=== PATIENT | male | born 1985 | race Caucasian/White ===

== ENCOUNTER 2023-07-28 07:26 | Emergency (ER) | payer OTHER, SELFPAY ==
[2023-07-28 07:31] VITALS: BP 130/105
[2023-07-28 08:09] LABS: % Basophils 0.1 % (0-2); % Eosinophils 0.1 % (0-6); % Immature Granulocytes 0.5 % (0-0.5); % Lymphocytes 6.9 % (20.5-51.1); % Neutrophils 82.4 % (42.2-75.2); Absolute Immature Granulocytes 0.1 10^3/uL (0-0.05); Absolute Monocytes 1.4 10^3/uL (0.1-0.6); Absolute Neutrophils 11.5 10^3/uL (1.4-6.5); Hematocrit 43.6 % (39.0-52.0); Hemoglobin 15.5 g/dL (13.0-18.0); Mean Corp Hgb Conc. 35.6 g/dL (33.0-37.0); Mean Corpuscular Hgb 30.1 pg (27.0-31.0); Mean Corpuscular Volume 84.7 fL (80.0-94.0); Mean Platelet Volume 10.8 fL (7.4-10.4); Nucleated Red Blood Cells % 0 % (-); Platelet Count 179 10^3/uL (130-400); Red Blood Cell Count 5.15 10^6/uL (4.70-6.10); Red Cell Dist. Width 12.2 % (11.5-14.5)
--- NOTE | 2023-07-28 08:21 | ED.GENMED ---
History of Present Illness
General
Chief Complaint: Cold/Flu/URI Symptoms
Source: patient
Exam Limitations: none
Time Seen by Provider: 07/28/23 08:11
Nursing documentation reviewed up to this point in time: agreed with
Travel History
Have you had any contact with someone who has COVID-19?: No
Do you have any symptoms of coronavirus? Fever > 100 degrees, chills, cough, shortness of breath, sore throat, loss of taste or smell, muscle aches, or headache?: No
History of Present Illness
History of Present Illness:
Patient is a 37-year-old male who presents to the ER for evaluation. Patient reports on Friday 2 days ago he started feel very lethargic. Yesterday send he had bodyaches and chills and headache with a fever of 102.7. He does complain of a sore
throat. Take Motrin this morning. He came to the ER today because he complains of a lot of back pain and was concerned about his kidneys. He denies any neck pain blurry vision. Denies any abdominal pain diarrhea constipation. He denies any
urinary frequency urgency or dysuria. Family has cold symptoms.
He is drinking fluids. He did take Motrin around 7 AM this morning and is starting to feel little better.
Past History
Past History
ED Past Medical History: None
ED Past Surgical History: None
Social History
Tobacco: Non-smoker
Alcohol: None
Drug: None
Living: with family
Family History
Family History: Negative Diabetes, Hypertension or CAD
Review of Systems
Review of Systems
Allergies reviewed?: Yes
All Other Systems: ROS reviewed and negative except as documented in HPI and ROS
Constitutional: Reports fever, fatigue and chills
EENT: Reports sore throat
Respiratory: Reports no symptoms; Denies cough
Cardiac: Reports no symptoms
ABD/GI: Reports no symptoms
Musculoskeletal: Reports no symptoms
Skin: Reports no symptoms
Neurological: Reports no symptoms
Psychiatric: Reports no symptoms
Phy Exam
General Physical Exam
General Presentation: no apparent distress
General age: appears stated age
General Skin: warm and dry
General Habitus: normal
General Mental: alert
General Hydration: appears well hydrated
ENT Exam
ENT Exam: EOMI, neck supple, pharyngeal erythema and other (No exudate, uvula midline tolerating secretions well)
Eye Exam
Eye Exam: PERRL and EOMI
Eye Exam General: PERRL: bilateral and EOM intact: bilateral
Pupil Exam: Bilateral: round and reactive
Neurological Exam
Neurological Exam: alert and oriented x3
Musculoskeletal Exam
Musculoskeletal Exam: full ROM
Skin Exam
Skin Exam: normal color and warm/dry
Psychiatric Exam
Psychiatric Exam: normal mood/affect
Course
Orders/Labs/Results
Orders:
Orders
07/28/23 07:43
Complete Blood Count/With Diff Urgent
Comprehensive Metabolic Panel Urgent
07/28/23 07:44
COVID-19 Antigen Urgent
Source: Nasal Swab
Influenza A+B Rapid Molecular Urgent
BARBARA Source: Nasal Swab
Specimen Description:
Date Specimen was Collected: 07/28/23
Time Specimen was Collected: 07:36
Rapid Strep Group A Urgent
BARBARA Source: Throat/Pharynx
Specimen Description:
Date Specimen was Collected: 07/28/23
Time Specimen was Collected: 07:36
Throat Culture, Comprehensive Urgent
BARBARA Source: Throat/Pharynx
Specimen Description:
Date Specimen was Collected: 07/28/23
Time Specimen was Collected: 07:36
07/28/23 08:36
0.9% Sodium Chloride 1000 ml [Nss] 1,000 ml IV BOLUS
07/28/23 08:37
Acetaminophen [Tylenol] 1,000 mg PO NOW STA
Diphenhydramine [Benadryl] 25 mg IV NOW STA
Metoclopramide [Reglan] 10 mg IV NOW STA
07/28/23 08:57
UA Reflex to Culture [Urinalysis Reflex To Culture] Urgent
Date Specimen was Collected: 07/28/23
Time Specimen was Collected: 08:43
Urine Microscopic Reflex Cult Urgent
Abnormal Lab Results
07/28/23 07/28/23
07:43 08:57
WBC 14.0 H 10^3/uL
(4.8-10.8)
MPV 10.8 H fL
(7.4-10.4)
Abs Immat Gran (auto) 0.1 H 10^3/uL
(0-0.05)
Absolute Neuts (auto) 11.5 H 10^3/uL
(1.4-6.5)
Absolute Lymphs (auto) 1.0 L 10^3/uL
(1.2-3.4)
Absolute Monos (auto) 1.4 H 10^3/uL
(0.1-0.6)
Neutrophils % 82.4 H %
(42.2-75.2)
Lymphocytes % 6.9 L %
(20.5-51.1)
Monocytes % 10.0 H %
(1.7-9.3)
Glucose 120 H mg/dl
(70-99)
Urine Bilirubin 1+ A
(Negative)
Leukocyte Esterase Rfl Trace A
(Negative)
Urine Bacteria (Reflex) Few A
(Negative)
07/28/23 07:43
07/28/23 07:43
Vital Signs
Initial and Last Documented VS:
Initial Vital Signs
Pulse Resp BP Pulse Ox
98 16 130/105 97
07/28/23 07:31 07/28/23 07:31 07/28/23 07:31 07/28/23 07:31
Last Documented Vital Signs
Temp Pulse Resp BP Pulse Ox
98.2 F 98 16 113/62 98
07/28/23 10:14 07/28/23 07:31 07/28/23 07:31 07/28/23 10:14 07/28/23 10:14
MDM/Problems Addressed
Differential Diagnosis Includes:
Not limited to COVID, influenza, viral syndrome, strep throat
MDM/Problems Addressed:
Symptoms are consistent with viral syndrome. Patient nontoxic afebrile white count minimally elevated negative COVID-negative flu negative rapid strep tolerating secretions well no meningismus. Patient took ibuprofen and was starting to feel
better on arrival patient was given fluids here in the ER along with Benadryl and Reglan for headache, Tylenol.
1107: Patient feeling better. He reports he just feels tired. He is nontoxic remains with no meningismus feels well enough to go home likely viral syndrome will DC with instructions to return if any worsening of symptoms
*Pulse Oximetry
Patient hypoxic: no
*Critical Care Note
Total Time (30-74mins, 75-104mins- exclusive of procedures): Not Applicable
ED Attending Note
-
Portions of this chart may have been created with voice recognition software.� Occasional wrong word or��sound alike� substitutions may have occurred due to the inherent limitations of voice recognition software.
Discharge Plan
Departure
Patient Disposition: Home (Routine Discharge)
Date of Disposition: 07/28/23
Time of Disposition: 11:08
Patient with high blood pressure during this ER visit?: Yes
Condition: Fair
Covid-19: Not Applicable
Discharge Problem:
Acute viral syndrome
Instructions: Viral Syndrome (DC), BLOOD PRESSURE
Prescriptions:
No Action
dextroamphetamine-amphetamine [Adderall XR] 10 MG capsule,extended release 24hr
25 mg PO .M-F
Patient Comments:
5 days a week patient does not take on the weekends
hydrocodone-acetaminophen [Vicodin] 1 EACH tablet
1 ea PO Q4HPRN PRN (Reason: pain) Qty: 20 0RF
Referrals:
NONE,* [Family Provider] -
Activity Restrictions/Additional Instructions:
Stay well-hydrated. You may alternate between Tylenol and ibuprofen. Follow-up with your family doctor in the next 2 to 3 days for reevaluation of your symptoms and return if any worsening of symptoms.
Interventions
Interventions:
*Risk Screen - Suicide Last Done: 07/28/23 10:03
*General Assessment Last Done: 07/28/23 10:03
*Neglect/Abuse Screening Last Done: 07/28/23 10:03
ED- Fall Risk Assessment Last Done: 07/28/23 10:03
*ED COVID-19 Vaccine History Last Done: 07/28/23 07:33
ED- Pulmonary Assessment Last Done: 07/28/23 10:03
Discharge Date and Time
Print Language: ALBANIAN
[2023-07-28 08:25] LABS: COVID-19 Antigen Negative (Negative)
[2023-07-28 08:26] LABS: ALT (SGPT) 22 U/L (0-50); AST (SGOT) 23 U/L (17-59); Albumin 4.4 g/dl (3.5-5.0); Alkaline Phosphatase 65 U/L (38-126); Blood Urea Nitrogen 14 mg/dl (9-20); Calcium 9.4 mg/dl (8.4-10.2); Carbon Dioxide 25 mmol/L (22-30); Chloride 103 mmol/L (98-107); Glucose 120 mg/dl (70-99); Potassium 4.3 mmol/L (3.5-5.1); Sodium 136 mmol/L (135-145); Total Bilirubin 0.8 mg/dl (0.2-1.3); Total Protein 7.4 g/dl (6.3-8.2); eGFR > 60.00
[2023-07-28] MEDS: TYLENOL 1000 MG PO (08:45)
[2023-07-28] MEDS: NSS 1000 IV (08:50)
[2023-07-28] MEDS: BENADRYL 25 MG IV (08:51)
[2023-07-28] MEDS: REGLAN 10 MG IV (08:51)
[2023-07-28 09:24] LABS: Urine Albumin Trace (Neg - Trace); Urine Bilirubin 1+ (Negative); Urine Character Clear (Clear); Urine Color Yellow; Urine Glucose Negative (Negative); Urine Ketone Negative (Negative); Urine Leukocyte Trace (Negative); Urine Nitrite Negative (Negative); Urine Occult Blood Negative (Negative); Urine Urobilinogen 1+ (Neg - 1+)
[2023-07-28 09:32] LABS: Urine Bacteria Few (Negative); Urine Mucus Few
[2023-07-28 09:33] LABS: Urine Red Blood Cell 0-2 /HPF (0-2); Urine White Cell 0-2 /HPF (0-5)
[2023-07-28 10:14] VITALS: BP 113/62
== END 2023-07-28 11:34 | disposition home or self-care (01) ==
LOC: EMR 07:26
PROVIDERS: Emergency Medicine; Nurse Practitioner; EMERGENCY PHYSICIAN Emergency Medicine
DX: B34.9 Viral infection, unspecified (principal); R51.9 Headache, unspecified; M54.9 Dorsalgia, unspecified; Z11.52 Encounter for screening for COVID-19; R03.0 Elevated blood-pressure reading, without diagnosis of hypertension; F90.9 Attention-deficit hyperactivity disorder, unspecified type
CPT/HCPCS: 99284; 96374; 96375; 80053; 81003; 81015; 85025; 87070; 87502; 87811; 87880